=== PATIENT | female | born 1990 | race Caucasian/White ===

== ENCOUNTER 2020-04-12 19:01 | Emergency (ER) | payer SELFPAY ==
[~2020-04-12] VITALS: Ht 165.1 cm; Wt 102.1 kg
[2020-04-12 19:02] VITALS: BP 159/95
== END 2020-04-13 00:08 | disposition left against medical advice (07) ==
LOC: ER 19:01
DX: R22.0 Localized swelling, mass and lump, head (principal); Z53.21 Procedure and treatment not carried out due to patient leaving prior to being seen by health care provider